=== PATIENT | female | born 1990 | race Two or more races ===

== ENCOUNTER 2019-04-12 13:39 | Observation (INO) | payer OTHER ==
[~2019-04-12] VITALS: Ht 157.5 cm; Wt 73.9 kg
[2019-04-12 14:47] LABS: Urine WBC None Seen /hpf (0 - 5)
[2019-04-12] MEDS ORDERED: BETAMETHASONE ACET (6MG/ML) 5ML VIAL IM SCH (14:53)
[2019-04-12] MEDS ORDERED: PREN-96 PO (14:58)
[2019-04-12] MEDS ORDERED: BETAMETHASONE ACET (6MG/ML) 5ML VIAL ONE (15:00)
[2019-04-12 15:15] LABS: Amphetamine Screen, Urine NEGATIVE (NEGATIVE); Barbiturate Scree,Urine NEGATIVE (NEGATIVE); Benzodiazephine Screen, Urine NEGATIVE (NEGATIVE); Cannabinoid Screen, Urine NEGATIVE (NEGATIVE); Cocaine Screen, Urine NEGATIVE (NEGATIVE); Opiate Scree,Urine NEGATIVE (NEGATIVE); Phencyclidine Screen, Urine NEGATIVE (NEGATIVE)
[2019-04-12 15:30] LABS: Basophils # (auto) 0 uL; Eosinophils # (auto) 0 uL; Hematocrit 36.1 % (36.0-46.0); Hemoglobin 11.6 g/dL (12.2-16.2); Lymphocytes # (auto) 0.8 uL; Mean Corpuscular Hgb Conc. 32.2 g/dL (32.0-36.0)
[2019-04-12 15:32] LABS: Basophils % (auto) 0.2 % (0.0-2.0); Eosinophils % (auto) 0.7 % (0.0-7.0); Lymphocytes % (auto) 11.1 % (10.0-50.0); Mean Corpuscular Hemoglobin 25.2 pg (28.0-32.0); Mean Corpuscular Volume 78.1 fL (80.0-100.0); Monocytes # (auto) 0.5 uL; Monocytes % (auto) 6.2 % (0.0-12.0); Neutrophils % (auto) 81.8 % (37.0-80.0); Nucleated Red Blood Cells % 0.1 %; Platelet Count (auto) 226 10^3/uL (140-450); Red Blood Cells 4.62 10^6/uL (4.0-5.20); Red Cell Distribution Width 17.6 % (11.8-14.3); White Blood Cell 7.4 10^3/uL (4.4-10.8)
[2019-04-12 15:46] LABS: Albumin 2.5 g/dL (3.4-5.0); Potassium 3.6 mmol/L (3.5-5.1)
[2019-04-12 15:48] LABS: INR 0.92 (0.9-1.15); Partial Thromboplastin Time 21.7 sec (23.64-32.05)
[2019-04-12 15:49] LABS: BUN/Creatinine Ratio 19.6; Bilirubin, Total 0.2 mg/dL (0.2-1.0); Total Protein 7.1 g/dL (6.4-8.2)
[2019-04-12 17:24] LABS: Urine Bacteria NONE SEEN /hpf (None Seen); Urine Blood 3+ /uL (Negative); Urine Specific Gravity 1.016 (1.001-1.035)
== END 2019-04-12 15:48 | disposition left against medical advice (07) | DRG 566 ==
LOC: LDRP 13:39
PROVIDERS: ADMIT Obstetrics & Gynecology; ATTEND Obstetrics & Gynecology
DX: O46.93 Antepartum hemorrhage, unspecified, third trimester (principal); O24.419 Gestational diabetes mellitus in pregnancy, unspecified control; Z3A.29 29 weeks gestation of pregnancy
CPT/HCPCS: 36415; 59025; 76805; 80053; 80307; 81001; 81002; 82962; 84550; 85025; 85610; 85730; 86850; 86900; 86901; G0378; J0702; 96372